=== PATIENT | female | born 1985 | race Caucasian/White ===

== ENCOUNTER → 2016-10-25 | Outpatient (CLI) | payer OTHER ==
[~2016-10-25] MED LIST: ACET-1256 PO; BCPILLS PO; BUTA1TAB70 PO; GABA-112 PO; GABA-113 PO; GABA1CAP PO; LEVE500T13 PO; LISI-725 PO; NRN/600 PO; SERT25TA PO; TRAM-10 PO
[2016-10-25 10:44] LABS: BASO % 0.2 %; BASO ABS # 0.03 K/uL (0-0.2); COMPLETE YES; EOS % 1.6 %; HEMATOCRIT 32.7 % (37-47); IG% 0.4 %; LYMPH % 21.4 %; LYMPH ABS # 3.09 K/uL (1.2-3.4); MEAN CELL VOLUME 86.1 fL (80-100); MEAN CORPUSCULAR HEMOGLOBIN 30.3 pg (25-34); MEAN CORPUSCULAR HGB CONC 35.2 g/dl (32-36); MEAN PLATELET VOLUME 9.5 fL (7.4-10.4); MONO % 4.8 %; NEUT % 71.6 %; PLATELET COUNT 285 K/uL (130-400); WHITE BLOOD COUNT 14.47 K/uL (4.8-10.8)
== END | disposition home or self-care (01) ==
LOC: C.LAB1850 10:08
PROVIDERS: ATTEND Obstetrics & Gynecology
DX: O36.80X0 Pregnancy with inconclusive fetal viability, not applicable or unspecified (principal)

== ENCOUNTER → 2016-10-31 | Outpatient (CLI) | payer OTHER ==
[~2016-10-31] MED LIST changes: -GABA1CAP PO; -NRN/600 PO
[2016-10-31 16:45] LABS: BENZODIAZEPINE, URINE NEG (NEG); COCAINE,URINE NEG (NEG); PHENCYCLIDINE, URINE NEG (NEG)
== END | disposition home or self-care (01) ==
LOC: C.LAB 12:38
PROVIDERS: ATTEND Family Medicine
DX: Z87.898 Personal history of other specified conditions (principal)

== ENCOUNTER 2016-11-02 14:05 | Emergency (ER) | payer OTHER ==
[~2016-11-02] VITALS: Ht 157.5 cm; Wt 58.0 kg
[~2016-11-02 14:05] MED LIST changes: -GABA-112 PO; -LEVE500T13 PO; -TRAM-10 PO
[2016-11-02 14:11] VITALS: TEMP 36.3; Ht 157.5 cm; Wt 58.0 kg
[2016-11-02] MEDS ORDERED: SODIUM CHLORIDE 0.9% 1000ML 500 ML IV STA (14:51)
[2016-11-02] MEDS ORDERED: ACETAMINOPHEN 500 MG TAB PO STA (14:51)
[2016-11-02] MEDS ORDERED: MoRPHine SULFATE 10 MG/ML CARP/VIAL IV PRN (15:00)
--- NOTE | 2016-11-02 15:00 | EMERGENCY ROOM VISIT NOTE ---
History Report prepared by Charles: Ivet Mccarty Under the Supervision of: Dr. Home Barlow M.D. First contact with patient: 14:48 Chief Complaint: VAGINAL BLEEDING Stated Complaint: HEAVY BLEED AND PAIN 3 MON History of Present Illness The patient is a 31 year old female who presents to the Emergency Room with complaints of persistent vaginal bleeding that started earlier today. She is accompanied by her fiance. The patient is approximately 11 weeks and notes she had a pelvic ultrasound performed yesterday. She notes this is the 4th time with this that she has experienced heavy vaginal bleeding. She also complains of crampy abdominal pain. She has tried taking Tylenol and Ibuprofen, but they have provided minimal relief. The patient has been 6 times before and has 3 children. Her other pregnancies ended in miscarriage and she follows with [facility]. . She notes that prior to arrival, she was using the bathroom when she experienced something heavy fall into the toilet. She is not sure if it was a clot. She felt nauseous last night, but has not vomited. She also denies any diarrhea. The patient admits to experiencing Suboxone withdrawal last year. She states she has not taken any similar medications since then and reports she takes Tylenol or Ibuprofen for pain now. Her blood type is A positive and she denies any recent fevers or cough or cold symptoms. Source of History: patient Onset: earlier today Position: other (vagina) Timing: other (persistent) Associated Symptoms: + abdominal pain, + nausea, No cough (cough or cold symptoms), No diarrhea, No fevers, No vomiting Review of Systems See HPI for pertinent positives & negatives. A total of 10 systems reviewed and were otherwise negative. Past Medical & Surgical Medical Problems: (1) ASTHMA, UNSPECIFIED (2) BIPOLAR DISORDER, UNSPECIFIED (3) Endometriosis (4) Hypothyroidism (5) Insomnia (6) MULTIPLE SCLEROSIS (7) POSTTRAUMATIC STRESS DISORDER (8) labor in third trimester Family History Diabetes mellitus FH: heart disease FHx: cancer Hypertension Kidney disease Psychiatric disorder Social History Smoking Status: Current Every Day Smoker Alcohol Use: occasionally Drug Use: marijuana Marital Status: in relationship Housing Status: lives with significant other Occupation Status: unemployed Current/Historical Medications Scheduled Gabapentin (Neurontin), 400 MG PO TID Lisinopril (Zestril), 20 MG PO DAILY Sertraline (Zoloft), 50 MG PO DAILY Scheduled PRN Acetaminophen (Tylenol), 1,000 MG PO Q6H PRN for Pain Cwiajfobfb-Wxeitsvrtlbeg-Zqknj (Esgic), 1 TAB PO DAILY PRN for Migraine Allergies Coded Allergies: Penicillins (Verified Allergy, Severe, Stopped breathing., 11/02/16) Reported by PT. Codeine (Unverified Allergy, Intermediate, ITCHING/BURNING, 11/02/16) pt would like this allergy removed, states reaction continued after not being on medication Tramadol (Verified Allergy, Mild, 11/02/16) Ketorolac Tromethamine (Verified Allergy, Unknown, GI SYMPTOMS, 11/02/16) Sumatriptan (Unverified Adverse Reaction, Intermediate, EXACERBATES HEADACHE, 11/02/16) Physical Exam Vital Signs Date Time Temp Pulse Resp B/P Pulse Ox O2 Delivery O2 Flow Rate FiO2 11/02/16 17:06 78 14 102/73 100 Room Air 11/02/16 14:11 36.3 101 18 126/73 100 Room Air Physical Exam GENERAL: Patient is in no acute distress. HEENT: No acute trauma, normocephalic atraumatic, mucous membranes moist, no nasal congestion, no scleral icterus. NECK: No stridor, no adenopathy, no meningismus, trachea is midline. LUNGS: Clear to auscultation bilaterally, no wheeze, no rhonchi, breath sounds equal. HEART: Without murmurs gallops or rubs, regular rate and rhythm. ABDOMEN: Soft, tender to the lower quadrants bilaterally, bowel sounds positive , no hernias, no peritonitis. EXTREMITIES: No cyanosis or edema, full range of motion of all the joints without pain or difficulty, no signs for acute trauma. NEUROLOGIC: Oriented x 3, no acute motor or sensory deficits, no focal weakness. SKIN: No rash, no jaundice, no diaphoresis. Medical Decision & Procedures ER Provider Diagnostic Interpretation: This Ultrasound was reviewed and interpreted by the radiologist and reviewed by myself. LIMITED (US) IMPRESSION: 1. Single live intrauterine gestation. The estimated postmenstrual age is 10 weeks and 6 days. 2. Normal maternal ovaries Electronically signed by: Edgar Saab M.D. 11/02/2016 5:21 PM Laboratory Results 11/02/16 15:06 11/02/16 15:06 Test 11/02/16 15:06 Red Blood Count 4.21 M/uL (4.2-5.4) Mean Corpuscular Volume 88.4 fL (80-100) Mean Corpuscular Hemoglobin 29.9 pg (25-34) Mean Corpuscular Hemoglobin Concent 33.9 g/dl (32-36) RDW Standard Deviation 47.5 fL (36.4-46.3) RDW Coefficient of Variation 14.6 % (11.5-14.5) Mean Platelet Volume 9.8 fL (7.4-10.4) Anion Gap 10.0 mmol/L (3-11) Est Creatinine Clear Calc Drug Dose 125.2 ml/min Estimated GFR () 148.6 Estimated GFR (Non- 128.2 BUN/Creatinine Ratio 14.8 (10-20) Calcium Level 9.5 mg/dl (8.5-10.1) Human Chorionic Gonadotropin, Quant 74279 mIU/mL Laboratory results reviewed by me. Medications Administered Medications (Trade) Dose Ordered Sig/Wesley Route Start Time Stop Time Status Last Admin Dose Admin Sodium Chloride (Nss 1000ml) 500 ml @ 999 mls/hr Q31M STAT IV 11/02/16 14:51 11/02/16 15:21 DC 11/02/16 15:17 999 MLS/HR Acetaminophen (Tylenol Tab) 1,000 mg NOW STAT PO 11/02/16 14:51 11/02/16 14:57 DC 11/02/16 15:17 1,000 MG Morphine Sulfate (MoRPHine SULFATE INJ) 4 mg STK-MED ONCE .ROUTE 11/02/16 15:09 11/02/16 15:10 DC 11/02/16 15:16 4 MG ED Course 1449: The patient was evaluated in room C3. A complete history and physical exam was performed. 1451: Acetaminophen 1000 mg PO, NSS 500 ml @ 999 mls/hr IV. 1500: Morphine Sulfate 4 mg IV. 1509: Morphine Sulfate 4 mg IV. 1736: I reevaluated the patient. She is feeling much better. I discussed her results and discharge instructions and she verbalized complete understanding and agreement. Medical Decision The differential diagnoses considered include: Miscarriage, vaginal bleeding in , UTI, anemia, ectopic , electrolyte imbalance. There is no leukocytosis or concerning anemia. No significant electrolyte abnormality or kidney failure. Beta Quant is elevated consistent with the . Pelvic ultrasound shows a healthy intrauterine at around 11 weeks. The heart rate was about 150. The patient received IV saline, IV morphine and oral Tylenol, she is comfortable. She is not toxic or febrile. She is being discharged with pelvic rest, she can follow with OB. She was reassured that, at this point, the is healthy. Certainly, she is at risk for miscarriage with the intermittent vaginal bleeding, she understands. Impression Primary Impression: Vaginal bleeding Additional Impression: Scribe Attestation The scribe's documentation has been prepared under my direction and personally reviewed by me in its entirety. I confirm that the note above accurately reflects all work, treatment, procedures, and medical decision making performed by me. Departure Information Dispostion Home / Self-Care [facility] Additional Instructions pelvic rest--no sex for now tylenol for pain heat to the abdomen may help follow closely with ob return for worsening symptoms Problem Qualifiers
[2016-11-02] MEDS ORDERED: MoRPHine SULFATE 4 MG/ML 1 ML CARP\\VIAL ONE (15:09)
[2016-11-02 15:22] LABS: HEMATOCRIT 37.2 % (37-47); MEAN CELL VOLUME 88.4 fL (80-100); MEAN CORPUSCULAR HEMOGLOBIN 29.9 pg (25-34); MEAN CORPUSCULAR HGB CONC 33.9 g/dl (32-36); MEAN PLATELET VOLUME 9.8 fL (7.4-10.4); PLATELET COUNT 313 K/uL (130-400); RED BLOOD COUNT 4.21 M/uL (4.2-5.4)
[2016-11-02 15:38] LABS: BUN/CREATININE RATIO 14.8 (10-20); CALCIUM 9.5 mg/dl (8.5-10.1); CREATININE 0.52 mg/dl (0.60-1.20); POTASSIUM 3.6 mmol/L (3.5-5.1)
--- NOTE | 2016-11-02 17:23 | DIAGNOSTIC IMAGING REPORT ---
LIMITED (US) CLINICAL HISTORY: . Vaginal bleeding. COMPARISON STUDY: ultrasound dated November 23, 2015 FINDINGS: There is an anterior scar present. The maternal right ovary measured 26 x 17 x 17 mm. The maternal left ovary measured 30 x 14 x 23 mm. Both ovaries were unremarkable in appearance. A single alive intrauterine gestation was visualized. The crown-rump length measured 40 mm corresponding assessment a postmenstrual age of 10 weeks and 6 days. The maternal cervix was closed. The amniotic heart rate was 156. Incidental note is made of a small 4 mm myometrial calcification. IMPRESSION: 1. Single live intrauterine gestation. The estimated postmenstrual age is 10 weeks and 6 days. 2. Normal maternal ovaries Electronically signed by: Edgar Saab M.D. 11/02/2016 5:21 PM Dictated Date/Time: 11/02/2016 5:15 PM
[2016-11-02 18:21] VITALS: BP 107/69; PULSE 86; O2SAT 99
== END 2016-11-02 18:23 | disposition home or self-care (01) ==
LOC: C.EDB 14:07 → C.EDC 18:23
DX: O20.9 Hemorrhage in early pregnancy, unspecified (principal); Z3A.11 11 weeks gestation of pregnancy; O99.511 Diseases of the respiratory system complicating pregnancy, first trimester; J45.909 Unspecified asthma, uncomplicated; O99.341 Other mental disorders complicating pregnancy, first trimester; F31.9 Bipolar disorder, unspecified; Z86.39 Personal history of other endocrine, nutritional and metabolic disease; O99.351 Diseases of the nervous system complicating pregnancy, first trimester; G35 Multiple sclerosis; O99.333 Smoking (tobacco) complicating pregnancy, third trimester; F17.200 Nicotine dependence, unspecified, uncomplicated; Z83.3 Family history of diabetes mellitus; Z84.1 Family history of disorders of kidney and ureter; Z82.49 Family history of ischemic heart disease and other diseases of the circulatory system

== ENCOUNTER 2017-05-25 07:07 | Emergency (ER) | payer OTHER ==
[~2017-05-25] VITALS: Ht 157.5 cm; Wt 66.1 kg
[~2017-05-25 07:07] MED LIST changes: -BCPILLS PO
[2017-05-25] MEDS ORDERED: CYCLOBENZAPRINE HCL 10 MG TAB PO STA (07:18)
[2017-05-25 07:19] VITALS: TEMP 36.7; Ht 157.5 cm; Wt 66.1 kg
[2017-05-25] MEDS ORDERED: DEXAMETHASONE SOD INJ 10 MG/ML VIAL IM ONE (07:30)
[2017-05-25] MEDS ORDERED: GABA-113 PO (07:42)
[2017-05-25] MEDS ORDERED: GABA-112 PO (07:42)
[2017-05-25] MEDS ORDERED: LEVE500T13 PO (07:43)
--- NOTE | 2017-05-25 08:19 | DIAGNOSTIC IMAGING REPORT ---
LUMBAR SPINE 5 VIEWS HISTORY: low back pain/ fall COMPARISON: Lumbar spine 06/03/2016. FINDINGS: There is no fracture. No subluxation. Disc spaces are preserved. IMPRESSION: No fracture or subluxation within the lumbar spine. Electronically signed by: Edison Alaniz M.D. 05/25/2017 8:18 AM Dictated Date/Time: 05/25/2017 8:17 AM
[2017-05-25 08:21] LABS: BENZODIAZEPINE, URINE NEG (NEG); COCAINE,URINE NEG (NEG); PHENCYCLIDINE, URINE NEG (NEG)
[2017-05-25] MEDS ORDERED: TRAMADOL HCL 50 MG TAB PO STA (08:26)
[2017-05-25] MEDS ORDERED: TRAM-10 PO (08:59)
--- NOTE | 2017-05-25 09:00 | EMERGENCY ROOM VISIT NOTE ---
History First contact with patient: 07:10 Chief Complaint: FALL Stated Complaint: 12 History of Present Illness The patient is a 31 year old female who presents to the Emergency Room via EMS with complaints of low back pain. The patient has chronic low back pain but this morning she went to sit on the edge of the bathtub and twisted her back as she misjudged the distance to the edge of the tub. She states she fell but did not land on her back. He was the patient states that she is currently on a prednisone taper for her chronic back pain as well as Mobic. The patient states that the pain is across her lower back on onto her buttocks and then comes down the sides of both her thighs and wraps around to her knee. She denies any numbness and tingling in her toes. The patient denies any loss of bowel or bladder control. The patient denies any saddle anesthesia. She denies any urinary symptoms. By the EMS report states that she is a former heroin user. Review of Systems 6 system review was performed and was negative unless stated otherwise in history of present illness. Past Medical/Surgical History Medical Problems: (1) ASTHMA, UNSPECIFIED (2) BIPOLAR DISORDER, UNSPECIFIED (3) Endometriosis (4) Hypothyroidism (5) Insomnia (6) MULTIPLE SCLEROSIS (7) POSTTRAUMATIC STRESS DISORDER (8) labor in third trimester Family History Diabetes mellitus FH: heart disease FHx: cancer Hypertension Kidney disease Psychiatric disorder Social History Smoking Status: Current Every Day Smoker Alcohol Use: occasionally Drug Use: marijuana Marital Status: in relationship Housing Status: lives with significant other Occupation Status: unemployed Current/Historical Medications Scheduled Gabapentin (Neurontin), 100 MG PO TID Gabapentin (Neurontin), 600 MG PO TID Levetiracetam (Keppra), 500 MG PO BID Sertraline (Zoloft), 100 MG PO DAILY Scheduled PRN Acetaminophen (Tylenol), 1,000 MG PO Q6H PRN for Pain Bpttyeitze-Ogfauqpfbuzeg-Kncfh (Esgic), 1 TAB PO DAILY PRN for Migraine Physical Exam Vital Signs Date Time Temp Pulse Resp B/P (MAP) Pulse Ox O2 Delivery O2 Flow Rate FiO2 05/25/17 07:19 36.7 101 18 136/97 100 Room Air Physical Exam PHYSICAL EXAM: Vital Signs normal: Reviewed Nurse's notes and agree. Gen.: 31- year-old white female appears in no acute distress. MENTAL STATUS: Alert and oriented 3. LUNGS: Clear to auscultation without wheezes rales or rhonchi. CARDIAC: Regular rate and rhythm without murmur. LUMBAR SPINE: No gross bony abnormality noted. Patient is nontender to palpation over the spinous processes. She is tender to palpation over the paravertebral regions bilaterally. She has limited range of motion in all directions secondary to pain. Muscle strength is 5 out of 5 bilateral lower extremities and symmetrical. NEURO: Patient is able to heel and toe walk without difficulty. I lateral patellar and Achilles reflexes are 2+. Sensation is intact to pinprick bilateral lower extremities. Negative straight leg raise bilaterally. Medical Decision & Procedures ER Provider Diagnostic Interpretation: LUMBAR SPINE 5 VIEWS HISTORY: low back pain/ fall COMPARISON: Lumbar spine 06/03/2016. FINDINGS: There is no fracture. No subluxation. Disc spaces are preserved. IMPRESSION: No fracture or subluxation within the lumbar spine. Electronically signed by: Edison Alaniz M.D. 05/25/2017 8:18 AM Dictated Date/Time: 05/25/2017 8:17 AM Laboratory Results Test 05/25/17 07:50 Urine Opiates Screen NEG (NEG) Urine Methadone, Qualitative NEG (NEG) Urine Barbiturates NEG (NEG) Urine Phencyclidine (PCP) Level NEG (NEG) Ur Amphetamine/Methamphetamine NEG (NEG) MDMA (Ecstasy) Screen NEG (NEG) Urine Benzodiazepines Screen NEG (NEG) Urine Cocaine Metabolite NEG (NEG) Urine Marijuana (THC) POS (NEG) Medications Administered Medications (Trade) Dose Ordered Sig/Wesley Route Start Time Stop Time Status Last Admin Dose Admin Dexamethasone Sodium Phosphate (Decadron Inj) 10 mg NOW ONCE IM 05/25/17 07:30 05/25/17 07:31 DC 05/25/17 07:42 10 MG Cyclobenzaprine HCl (Flexeril Tab) 10 mg NOW STAT PO 05/25/17 07:18 05/25/17 07:22 DC 05/25/17 07:42 10 MG Tramadol HCl (Ultram Tab) 100 mg NOW STAT PO 05/25/17 08:26 05/25/17 08:27 DC 05/25/17 08:33 100 MG ED Course The patient was evaluated. The patient's EMR medication list were reviewed. The patient was instructed by the nursing staff to give a urine sample and when they went in to get the urine the cup was filled with water. Since the patient is a former heroin user my suspicions are for drug use in this patient and do not want to give her narcotics if she is currently using illicit drugs. Therefore I instructed the nurses to straight cath the patient for a urine tox screen. In the interim the patient was given Decadron 10 mg IM and Flexeril 10 mg by mouth. X-ray of the lumbar spine was ordered and interpreted by the radiologist and myself as above without any acute findings. I informed the patient of the findings. She did tell the nurse as well as myself that she uses THC intermittently for her MS stated this most likely will show up on the urine tox screen. Urine tox screen revealed THC but otherwise was negative. Therefore the patient was given Ultram which she stated she is not allergic to 100 mg by mouth while in the emergency room.. The patient was reevaluated and was feeling much better. The patient was discharged home in stable condition. Medical Decision Even though the patient has chronic back pain due to the fall and x-ray of the lumbar spine was ordered to evaluate for fracture. [facility] Drug Monitoring Program Search Results: patient reviewed within database Medication Reconcilliation Current Medication List: was personally reviewed by me Impression Primary Impression: Low back pain Departure Information Dispostion Home / Self-Care Condition GOOD Prescriptions Tramadol (Ultram) 50 Mg Tab 1-2 TAB PO Q6H Y for Pain, #20 TAB For Initial Treatment Prov: Era Lovett PA-C 05/25/17 Referrals No Doctor, Assigned (PCP) Forms HOME CARE DOCUMENTATION FORM, IMPORTANT VISIT INFORMATION Patient Instructions My [facility] Additional Instructions Take tramadol as needed for pain. Do not drive while taking the tramadol. Continue your prednisone and Modic in addition to the tramadol. Follow-up with your family doctor next week. If symptoms worsen in the interim, return to ER. Problem Qualifiers Primary Impression: Low back pain Chronicity: acute Back pain laterality: bilateral Sciatica presence: with sciatica Sciatica laterality: bilateral sciatica Qualified Codes: M54.42 - Lumbago with sciatica, left side; M54.41 - Lumbago with sciatica, right side
[2017-05-25 09:11] VITALS: BP 142/90; PULSE 95; O2SAT 100
== END 2017-05-25 09:33 | disposition home or self-care (01) ==
LOC: EDBD 07:07 → C.EDB 07:08
DX: M54.42 Lumbago with sciatica, left side (principal); W19.XXXA Unspecified fall, initial encounter; J45.909 Unspecified asthma, uncomplicated; F31.9 Bipolar disorder, unspecified; E03.9 Hypothyroidism, unspecified; G35 Multiple sclerosis; N80.9 Endometriosis, unspecified; F43.10 Post-traumatic stress disorder, unspecified; Z83.3 Family history of diabetes mellitus; Z82.49 Family history of ischemic heart disease and other diseases of the circulatory system; F17.200 Nicotine dependence, unspecified, uncomplicated; F12.90 Cannabis use, unspecified, uncomplicated

== ENCOUNTER → 2017-06-19 | Outpatient (CLI) | payer OTHER ==
[~2017-06-19] MED LIST changes: +GABA-112 PO; +GABA1CAP PO; +GADAVIST IV PRN; +LEVE500T13 PO; -LISI-725 PO; +NRN/600 PO; +TRAM-10 PO
--- NOTE | 2017-06-19 20:28 | DIAGNOSTIC IMAGING REPORT ---
LUMBAR SPINE COMBINATION CLINICAL HISTORY: 31 years-old Female with G35 Multiple [id number] Low back painM54.16 Lumbar radiculopathy. Patient complains of severe low back pain with radiation into the lower hips and thighs, right greater than left, acute. COMPARISON: Lumbar spine radiographs 05/25/2017, lumbar spine MR 06/27/2014 TECHNIQUE: Multiplanar, multi sequence MRI of the lumbar spine was performed both with and without the use of 6.5 mL Gadavist FINDINGS: The large [id number] french folder images demonstrate no gross abnormality. Signal within the imaged distal cord is within normal limits without abnormal T2 signal. There is no abnormal enhancement identified. Conus medullaris terminates at the T12 level. There is no focal bone marrow edema, fracture or malalignment. No marrow replacing process. Some of the axial images are mildly motion degraded. T12-L1: No central canal or neural foraminal stenosis. L1-L2: No central canal or neural foraminal stenosis. L2-L3: No central canal or neural foraminal stenosis. L3-L4: No central canal or neural foraminal stenosis. Mild facet arthrosis. L4-L5: Small circumferential disc bulge without central canal or neural foraminal stenosis. Mild facet arthrosis. L5-S1: Mild posterior intervertebral disc space narrowing is noted with small circumferential annular disc bulge. Additionally, there is mild facet arthrosis without central canal or foraminal narrowing. No significant change from comparison. IMPRESSION: 1. Minimal discogenic degenerative changes at L4-L5 and L5-S1 without significant central canal or foraminal narrowing. No significant change from comparison study 06/27/2014. 2. Mild multilevel facet arthropathy. 3. No abnormal signal or enhancement within the imaged distal cord to suggest demyelinating disease. The above report was generated using voice recognition software. It may contain grammatical, syntax or spelling errors. Electronically signed by: Rodrigo Finch M.D. 06/19/2017 8:27 PM Dictated Date/Time: 06/19/2017 8:18 PM
== END | disposition home or self-care (01) ==
LOC: C.MRI 18:57
PROVIDERS: ATTEND Family Medicine
DX: G35 Multiple sclerosis (principal); M54.16 Radiculopathy, lumbar region

== ENCOUNTER 2017-07-23 21:16 | Emergency (ER) | payer OTHER ==
[~2017-07-23] VITALS: Ht 157.5 cm; Wt 66.0 kg
[~2017-07-23 21:16] MED LIST changes: -GABA1CAP PO; -GADAVIST IV PRN; -NRN/600 PO
[2017-07-23 21:23] VITALS: TEMP 37; Ht 157.5 cm; Wt 66.0 kg
[2017-07-23] MEDS ORDERED: ACETAMINOPHEN/CODEINE 300/30MG TAB PO STA (22:23)
[2017-07-23] MEDS ORDERED: GABAPENTIN 800 MG TAB PO STA (22:26)
[2017-07-23] MEDS ORDERED: NRN/600 PO (22:29)
[2017-07-23] MEDS ORDERED: GABA1CAP PO (22:29)
--- NOTE | 2017-07-23 22:33 | EMERGENCY ROOM VISIT NOTE ---
ED Visit Note First contact with patient: 22:09 CHIEF COMPLAINT: Low back pain HISTORY OF PRESENT ILLNESS: This 31-year-old female patient presents to the emergency department ambulatory, complaining of pain in the low back which began several weeks ago. The patient does report a history of chronic low back pain, and she is currently seeing her primary care provider for prescriptions for tramadol. She states a few days ago, the pain seemed to be worsening to the point where the tramadol was not helping any longer. Upon questioning regarding the patient's medication list, she states she did run out of her gabapentin a few days ago as well. She did not put together that being off of the gabapentin could potentially be causing her flare up of pain. She is under the care of her PCP and has had multiple MRIs of her back performed over the past 1-2 years. She does have an appointment scheduled for July 30 with pain management. She states today, she had taken 3 tramadol and some Tylenol without any help. She has also been taking hot baths and stretching without any improvement in her symptoms. She was told that her primary care provider will not prescribe her any more medications or narcotics for her chronic pain until she is seen by pain management. She states she was taking Tylenol #3 a few weeks ago, which did help her pain. The patient does not have a specific diagnosis, and states she has "SI joint problems". The patient notes the pain as sharp and constant and a 9/10. The patient denies any loss of control of their bowel or bladder functions. There has been no leg numbness or weakness, and no change in sensation. No nausea or vomiting or abdominal pain. No chest pain or shortness of breath. The patient has not had prior specific back injuries. No dysuria or increased urinary frequency. REVIEW OF SYSTEMS: A 10 system review of systems was performed with positives and pertinent negatives listed in the history of present illness. All other systems were reviewed and are negative. ALLERGIES: Imitrex, penicillins, Toradol MEDICATIONS: Tramadol, Zoloft, gabapentin, Keppra, B12, Synthroid, ranitidine, prednisone PMH: Multiple sclerosis, SI joint problems, bipolar disorder, insomnia SOCIAL HISTORY: The patient lives locally with her boyfriend. She states she does currently smoke approximately one pack of cigarettes per day. She denies alcohol or drug use. PHYSICAL EXAM: VITALS: Vitals are noted on the nurse's note and reviewed by myself. Vital signs stable. GENERAL: This is a 31-year-old white female, in no acute distress, nondiaphoretic, well-developed well-nourished. SKIN: The skin was without rashes, erythema, edema, or bruising. Capillary refill less than 2 seconds. NECK: Supple without nuchal rigidity. No cervical spine tenderness. No paraspinous muscle tenderness. HEART: Regular rate and rhythm without murmurs gallops or rubs. LUNGS: Clear to auscultation bilaterally without wheezes, rales or rhonchi. ABDOMEN: Positive bowel sounds x 4. Normal tympanic percussion. Soft, nontender, without masses or organomegaly. Lewis sign negative. MUSCULOSKELETAL: No muscle atrophy, erythema, or edema noted of the back. There is mild tenderness over the lumbar spinous processes. There is mild tenderness over the paraspinous muscles bilaterally. There is no tenderness over the thoracic spine or paraspinous muscles. There are no muscle spasms present. The patient is slow to move around with maximum tenderness with sitting from a lying position. Negative straight leg raise test. NEURO: Patient was alert and oriented to person place and time. Normal sensation to light and sharp touch. Deep tendon reflexes 2+ in the lower extremities. Dorsalis pedis pulse 2+ bilaterally. Strength 5/5 and equal in the bilateral lower extremities. EMERGENCY DEPARTMENT COURSE: The patient was seen and evaluated as above. I did discuss with her proper management for chronic back pain, and advised her that we do not manage chronic pain here in the emergency department. I encouraged the patient to take her tramadol as prescribed, as she is allowed to take 1-2 tablets every 4-6 hours. She has only taken 3 tablets total today as well as the Tylenol. I offered to refill the patient's gabapentin, as I suspect that the flare up of her pain is partially caused by being off of gabapentin at this time. The patient did request something for pain here in the emergency department, so I offered her Tylenol with codeine. She did accept this. I did review the patient in PDMP, and did note that she had had multiple prescriptions for tramadol over the past few weeks, but did not note any prescriptions for Tylenol #3. To my knowledge at this point, the patient seemed to be in agreement with the plan of care, and will follow-up with her PCP and pain management at her regularly scheduled appointment next week. I was advised by the RN Can Labeler that while in triage, the patient had been very calm and discussing her complaints, however the patient's boyfriend became borderline aggressive with nursing staff when they advised him that we often do not treat chronic pain with narcotic medication here in the emergency department. I was informed that the patient had been calm and was attempting to calm down her boyfriend throughout the interaction. Apparently after I left the room, registration entered the room to talk with the patient. I was informed that the patient told registration that she was unhappy with her care and my plan at this time, and would like to see another provider. I discussed the case with Dr. Austin and advised her of my plan of care to manage the patient's pain at this time. Dr. Austin is in agreement, and does agree to go see the patient for further evaluation and discussion regarding proper treatment. Dr. Austin and Esther, RN, did go speak with the patient at this point. The patient was given 800 mg gabapentin and a dose of Tylenol with codeine while here in the emergency department. She was encouraged to talk with her primary care provider regarding a longer prescription for the tramadol because she may run out sooner than her pain management appointment. Discharge instructions were reviewed, and the patient was discharged home in good condition. I attest that I have personally reviewed the patient's current medication list. Patient was found to have normal blood pressure on screening and does not require follow-up. DIFFERENTIAL DIAGNOSIS: Lumbar strain, lumbar sprain, fracture, sciatica, disc herniation, cauda equina syndrome, chronic pain, MS flare, fibromyalgia, malignancy, and others DIAGNOSIS: Chronic back pain Problem List Medical Problems: (1) ASTHMA, UNSPECIFIED Status: Chronic (2) BIPOLAR DISORDER, UNSPECIFIED Status: Chronic (3) Endometriosis Status: Chronic (4) Hypothyroidism Status: Chronic (5) Insomnia Status: Chronic (6) MULTIPLE SCLEROSIS Status: Chronic (7) POSTTRAUMATIC STRESS DISORDER Status: Chronic Current/Historical Medications Scheduled Gabapentin (Neurontin), 100 MG PO TID Gabapentin (Neurontin), 600 MG PO TID Gabapentin (Neurontin), 1 CAP PO TID Gabapentin (Neurontin), 1 TAB PO TID Levetiracetam (Keppra), 500 MG PO BID Sertraline (Zoloft), 100 MG PO DAILY Scheduled PRN Acetaminophen (Tylenol), 1,000 MG PO Q6H PRN for Pain Orqhwbytiy-Nxqpslmdcdcjf-Ymoff (Esgic), 1 TAB PO DAILY PRN for Migraine Tramadol (Ultram), 1-2 TAB PO Q6H PRN for Pain Allergies Coded Allergies: Penicillins (Verified Allergy, Severe, Stopped breathing., 05/25/17) Reported by PT. Codeine (Unverified Allergy, Intermediate, ITCHING/BURNING, 11/02/16) pt would like this allergy removed, states reaction continued after not being on medication Tramadol (Verified Allergy, Mild, 11/02/16) Ketorolac Tromethamine (Verified Allergy, Unknown, GI SYMPTOMS, 05/25/17) Sumatriptan (Unverified Adverse Reaction, Intermediate, EXACERBATES HEADACHE, 05/25/17) Vital Signs Date Time Temp Pulse Resp B/P (MAP) Pulse Ox O2 Delivery O2 Flow Rate FiO2 07/23/17 22:50 79 18 127/78 97 Room Air 07/23/17 21:23 37.0 107 16 118/76 98 Room Air Medications Administered Medications (Trade) Dose Ordered Sig/Wesley Route Start Time Stop Time Status Last Admin Dose Admin Acetaminophen/ Codeine Phosphate (Tylenol w/ Codeine #3 Tab) 1 tab NOW STAT PO 07/23/17 22:23 07/23/17 22:26 DC 07/23/17 22:37 1 TAB Gabapentin (Neurontin Tab) 800 mg NOW STAT PO 07/23/17 22:26 07/23/17 22:27 DC 07/23/17 22:47 800 MG Departure Information Impression Primary Impression: Chronic low back pain Dispostion Home / Self-Care Condition GOOD Prescriptions Gabapentin (NEURONTIN) 600 Mg Tab 1 TAB PO TID for 30 Days, #90 TAB Prov: Sadaf Sheikh PA-C 07/23/17 Gabapentin (NEURONTIN) 100 Mg Cap 1 CAP PO TID for 30 Days, #90 CAP Prov: Sadaf Sheikh PA-C 07/23/17 Referrals Malathi Ortiz DO (PCP) Patient Instructions ED Back Care Tips, ED Neck Back Pain General, [facility] Additional Instructions You have been treated in the Emergency Department for Back Pain. You have received pain medicine in the emergency department which impairs your ability to operate a vehicle. It is illegal for you to drive after receiving these medicines. I did refill your gabapentin prescription. Please restart taking this medication as prescribed. He should be sure to follow up to psychiatrist for refills at that time. For pain control, you can use the following ybsg-kea-tdtipgs medicines (if >12 yo): Ibuprofen(Motrin, Advil) may be used for fever or pain. Use 600mg every six hours as needed. Take with food. Avoid using more than 2400mg in a 24 hour period. Do not use 2400mg per day for more than three consecutive days without physician direction. Prolonged inappropriate use can lead to stomach upset or ulcers. (AND/OR) Acetaminophen(Tylenol) may be used for fever or pain. Use 1000mg every six hours as needed. Avoid using more than 3000mg in a 24 hour period. If this is an acute injury, ice can be applied to the area of pain for the first 3 days to help decrease pain and inflammation. After the first 3 days, a heating pad can be used over the area for continued soothing relief. You should schedule a follow-up appointment in 2-3 days with your Primary Care Provider for further evaluation and treatment of your back pain. Return to the Emergency Department if your current symptoms worsen despite treatment course outlined above, or if you develop any of the following symptoms : intractable pain despite aforementioned treatment course, loss of control of your bowel or bladder, numbness or tingling in your groin, or development of a fever. Problem Qualifiers Primary Impression: Chronic low back pain Back pain laterality: bilateral Sciatica presence: without sciatica Qualified Codes: M54.5 - Low back pain; G89.29 - Other chronic pain
[2017-07-23 22:50] VITALS: BP 127/78; PULSE 79; O2SAT 97
== END 2017-07-23 22:55 | disposition home or self-care (01) ==
LOC: C.EDB 21:17 → C.EDD 22:55
DX: M54.5 Low back pain (principal); G89.29 Other chronic pain; G35 Multiple sclerosis; F31.9 Bipolar disorder, unspecified; F43.10 Post-traumatic stress disorder, unspecified; E03.9 Hypothyroidism, unspecified; J45.909 Unspecified asthma, uncomplicated; G47.00 Insomnia, unspecified; Z79.899 Other long term (current) drug therapy; Z79.52 Long term (current) use of systemic steroids; F17.210 Nicotine dependence, cigarettes, uncomplicated

== ENCOUNTER 2017-11-16 20:37 | Emergency (ER) | payer OTHER ==
[2017-11-16 20:43] VITALS: BP 126/80; TEMP 36.3; Ht 157.5 cm
[2017-11-16] MEDS ORDERED: SERT50TA PO (21:11)
--- NOTE | 2017-11-16 22:28 | DIAGNOSTIC IMAGING REPORT ---
LEFT WRIST 4 VIEWS HISTORY: Left wrist pain COMPARISON: None. FINDINGS: There is no fracture or dislocation. Soft tissues are unremarkable. No radiopaque foreign bodies. IMPRESSION: No fractures. Electronically signed by: Edison Alaniz M.D. 11/16/2017 10:27 PM Dictated Date/Time: 11/16/2017 10:26 PM
--- NOTE | 2017-11-16 22:33 | DIAGNOSTIC IMAGING REPORT ---
LUMBAR SPINE 5 VIEWS HISTORY: Low back pain COMPARISON: Lumbar spine 05/25/2017. FINDINGS: There is no fracture. No subluxation. Disc spaces are preserved. IMPRESSION: No fracture or subluxation within the lumbar spine. Electronically signed by: Edison Alaniz M.D. 11/16/2017 10:32 PM Dictated Date/Time: 11/16/2017 10:30 PM
[2017-11-16] MEDS ORDERED: METH4PAK PO (22:53)
[2017-11-16 23:23] VITALS: PULSE 94; O2SAT 96
--- NOTE | 2017-11-18 01:10 | EMERGENCY ROOM VISIT NOTE ---
History First contact with patient: 20:59 Chief Complaint: BACK PAIN Stated Complaint: SEVERE BACK PAIN HAS BEEN ON GOING History of Present Illness The patient is a 32 year old female who presents to the Emergency Room with complaints of severe back pain for the past week. The patient states that she was moving furniture at home last weekend when she pulled something in her back. The patient has a long-standing history of chronic back pain. She has been seen several times in the past at this facility with his complaint. The patient has previously been referred to pain management and orthospine, but does not follow with either of these services. She does not report a distinct fall or trauma. No difficulty using the bathroom. No saddle paresthesias. The patient's discomfort is bilateral in the lower back and does not radiate. She rates the pain a 10/10 and does not identify aggravating or alleviating factors. She did take some tramadol initially, but has run out of this medication. Review of Systems More than 10 systems were reviewed and otherwise negative with the exception of history of present illness. Past Medical/Surgical History Medical Problems: (1) ASTHMA, UNSPECIFIED (2) BIPOLAR DISORDER, UNSPECIFIED (3) Endometriosis (4) Hypothyroidism (5) Insomnia (6) MULTIPLE SCLEROSIS (7) POSTTRAUMATIC STRESS DISORDER (8) labor in third trimester Family History Diabetes mellitus FH: heart disease FHx: cancer Hypertension Kidney disease Psychiatric disorder Social History Smoking Status: Current Every Day Smoker Alcohol Use: occasionally Drug Use: marijuana Marital Status: in relationship Housing Status: lives with significant other Occupation Status: unemployed Current/Historical Medications Scheduled Gabapentin (Neurontin), 100 MG PO TID Gabapentin (Neurontin), 600 MG PO TID Levetiracetam (Keppra), 500 MG PO BID Methylprednisolone (Medrol Dosepak), 1 PKT PO DAILY Sertraline (Zoloft), 50 MG PO DAILY Scheduled PRN Acetaminophen (Tylenol), 1,000 MG PO Q6H PRN for Pain Physical Exam Vital Signs Date Time Temp Pulse Resp B/P (MAP) Pulse Ox O2 Delivery O2 Flow Rate FiO2 11/16/17 23:23 94 96 11/16/17 20:43 36.3 105 18 126/80 96 Room Air Physical Exam VITALS: Vitals are noted on the nurse's note and reviewed by myself. Vital signs stable. GENERAL: Well-developed, well-nourished, white female who appears very sedated on examination. HEAD: Normocephalic atraumatic. NECK: Supple without nuchal rigidity. No lymphadenopathy. No thyromegaly. Cervical spine is nontender. HEART: Regular rate and rhythm without murmurs gallops or rubs. LUNGS: Clear to auscultation bilaterally without wheezes, rales or rhonchi. No retractions or accessory muscle use. MUSCULOSKELETAL: No muscle atrophy, erythema, or edema noted. Full range of motion without joint tenderness in all extremities. No tenderness to palpation. Negative straight leg raise bilateral. No saddle paresthesias. Normal gait. Strength 5/5 throughout. NEURO: Patient was alert and oriented to person place and time. CN II through XII grossly intact. No focal neurological deficits. Medical Decision & Procedures ER Provider Diagnostic Interpretation: LUMBAR SPINE 5 VIEWS HISTORY: Low back pain COMPARISON: Lumbar spine 05/25/2017. FINDINGS: There is no fracture. No subluxation. Disc spaces are preserved. IMPRESSION: No fracture or subluxation within the lumbar spine. LEFT WRIST 4 VIEWS HISTORY: Left wrist pain COMPARISON: None. FINDINGS: There is no fracture or dislocation. Soft tissues are unremarkable. No radiopaque foreign bodies. IMPRESSION: No fractures. ED Course Physical exam and history were performed. Nursing notes, EMR, and Medication List were personally reviewed. Patient appears to have reports of severe back pain. On examination the patient is very sedated appearing. She is answering questions appropriately, but slowly. She denies taking any medication other than tramadol a few days ago. I discussed options of care with the patient, and explained that I would not be providing her pain medication today. She would like x-rays of her back, which were performed. The patient also called me back into the emergency room after I had performed my initial evaluation, and requested an x-ray of her wrist. She states that her left wrist has been bothering her for several weeks , but despite this she still participated in moving furniture this past weekend. X-ray of the wrist was performed. The patient's x-rays are as above and reviewed by myself and radiology. X-rays do not show evidence of acute fracture or dislocation. On reevaluation the patient was asleep in the emergency department bed. I was able to wake her to provide results. She states that she had not been sleeping well the past few nights, which was why she was so tired here in the department. Overall the patient appears stable for discharge home. I will treat the patient conservatively with qccp-qoj-plifqbs analgesics. She really needs to follow with orthospine or the pain management clinic. She was otherwise invited back to the ER with any new, worsening, or concerning symptoms. The patient's encounter today was quite peculiar. I do have concern for drug- seeking behavior. Review of the [place] drug monitoring website appears showing the patient filling over 160 oxycodone 10 mg tablets 2 months ago. This was done over 4 different prescriptions. Last month she did not receive any medication, and this month is now here in this department. I suspect that she was dismissed from her usual providers as she had been receiving regular prescriptions until last month. Her case will need to be followed in the future. The chart was completed utilizing [employer] Speech Voice Recognition Software. Grammatical errors, random word insertions, pronoun errors, and incomplete sentences are an occasional consequence of this system due to software limitations, ambient noise, and hardware issues. Any formal questions or concerns about the content, text, or information contained within the body of this dictation should be directly addressed to the provider for clarification. . Medical Decision Differential diagnosis: Etiologies such as musculoskeletal, disc herniation, fracture, aortic disease, metastatic disease, cord compression, discitis, infection, renal colic, gastrointestinal, acute exacerbation of chronic back pain, sciatica, cauda equina, as well as others were entertained. Impression Primary Impression: Back pain Additional Impression: Wrist pain Departure Information Dispostion Home / Self-Care Condition GOOD Prescriptions Methylprednisolone (MEDROL DOSEPAK) 4 Mg Josue 1 PKT PO DAILY, #1 PKT Prov: Golden Soto PA-C 11/16/17 Forms HOME CARE DOCUMENTATION FORM, IMPORTANT VISIT INFORMATION Patient Instructions My [facility] Additional Instructions You were seen and evaluated today on an emergency basis only. This is not a substitute for, or an effort to provide, complete comprehensive medical care. It is not possible to recognize and treat all injuries or illnesses in a single emergency department visit. For this reason it is recommended that you followup with your primary care physician this week for ongoing care and evaluation. Take a Medrol Dosepak as prescribed on the packaging The emergency department is not able to provide pain medication for chronic back pain. We recommend that you follow with a pain management clinic for appropriate services. You are welcome to return to the emergency department anytime with new, worsening, or concerning symptoms. Problem Qualifiers
== END 2017-11-16 23:23 | disposition home or self-care (01) ==
LOC: C.EDB 20:38 → C.EDD 23:23
DX: M54.5 Low back pain (principal); M25.532 Pain in left wrist; G89.29 Other chronic pain; G35 Multiple sclerosis; E03.9 Hypothyroidism, unspecified; F31.9 Bipolar disorder, unspecified; Z79.899 Other long term (current) drug therapy; Z81.8 Family history of other mental and behavioral disorders; Z82.49 Family history of ischemic heart disease and other diseases of the circulatory system; Z83.3 Family history of diabetes mellitus; Z84.1 Family history of disorders of kidney and ureter; F17.200 Nicotine dependence, unspecified, uncomplicated

== ENCOUNTER 2017-11-23 22:48 | Emergency (ER) | payer OTHER ==
[~2017-11-23] VITALS: Ht 157.5 cm; Wt 74.2 kg
[~2017-11-23 22:48] MED LIST changes: -BUTA1TAB70 PO; +METH4PAK PO; -SERT25TA PO; +SERT50TA PO; -TRAM-10 PO
[2017-11-23 22:58] VITALS: TEMP 36.9; Ht 157.5 cm; Wt 74.2 kg
[2017-11-24 00:21] VITALS: O2SAT 97
[2017-11-24 00:30] LABS: BASO % 0.5 %; BASO ABS # 0.04 K/uL (0-0.2); EOS % 9.5 %; EOS ABS # 0.78 K/uL (0-0.5); HEMATOCRIT 43.7 % (37-47); HEMOGLOBIN 14.5 g/dL (12.0-16.0); IG# 0.02 K/uL (0.00-0.02); LYMPH % 40.8 %; LYMPH ABS # 3.37 K/uL (1.2-3.4); MEAN CELL VOLUME 88.8 fL (80-100); MEAN CORPUSCULAR HEMOGLOBIN 29.5 pg (25-34); MEAN CORPUSCULAR HGB CONC 33.2 g/dl (32-36); MEAN PLATELET VOLUME 10.4 fL (7.4-10.4); MONO % 3.9 %; MONO ABS # 0.32 K/uL (0.11-0.59); NEUT % 45.1 %; NEUT ABS # 3.72 K/uL (1.4-6.5); PLATELET COUNT 368 K/uL (130-400); RED CELL DISTRIBUTION WIDTH CV 14.8 % (11.5-14.5); RED CELL DISTRIBUTION WIDTH SD 48.3 fL (36.4-46.3); WHITE BLOOD COUNT 8.25 K/uL (4.8-10.8)
[2017-11-24 00:58] LABS: ALBUMIN 3.9 gm/dl (3.4-5.0); CALCIUM 9.1 mg/dl (8.5-10.1); CREATININE 0.63 mg/dl (0.60-1.20); TOTAL PROTEIN 8.4 gm/dl (6.4-8.2)
--- NOTE | 2017-11-24 04:05 | EMERGENCY ROOM VISIT NOTE ---
History First contact with patient: 23:21 Chief Complaint: FALL Stated Complaint: FALL, BACK & ELBOW PAIN History of Present Illness The patient is a 32 year old female who presents to the Emergency Room with complaints of low back pain and right elbow pain. The patient states she fell off of a ladder, from the third rung earlier this evening. She believes the incident occurred at approximately 5 PM. She states as she was falling, she did hit her head on a higher rung, and landed backwards on her behind. The patient states she has a chronic history of low back pain, and states she believes she flared up the pain when she fell. She describes the pain is similar to her usual pain, however more severe. She states the pain is dull, and located in the middle of the low back. She states after landing on her buttocks, that she also hit her right elbow. She admits to taking 800 mg ibuprofen and 3 OTC Tylenol tablets prior to arrival, and states none of them have helped her pain. On arrival to the emergency department, the patient is not arousable on initial examination and for several hours. She was difficult to obtain a history, and he is very tired, as she has not been sleeping well past few days. The patient eventually does admit to drinking "a couple drinks" this evening, but she first stated that she drank these drinks a few days ago. The patient denies any drug use. She denies any chest pain, difficulty breathing, visual disturbances, confusion, dizziness, or other concerning symptoms. When asked if she lost consciousness, the patient states "I think I did". She rates her pain 9/10. Review of Systems A complete 10 point review of systems was reviewed with the patient after she was able to be aroused enough to answer questions, with pertinent positives and negatives as per history of present illness. All else were negative. Past Medical/Surgical History Medical Problems: (1) ASTHMA, UNSPECIFIED (2) BIPOLAR DISORDER, UNSPECIFIED (3) Endometriosis (4) Hypothyroidism (5) Insomnia (6) MULTIPLE SCLEROSIS (7) POSTTRAUMATIC STRESS DISORDER (8) labor in third trimester Family History Diabetes mellitus FH: heart disease FHx: cancer Hypertension Kidney disease Psychiatric disorder Social History Smoking Status: Current Every Day Smoker Alcohol Use: occasionally Drug Use: marijuana Marital Status: in relationship Housing Status: lives with significant other Occupation Status: unemployed Current/Historical Medications Scheduled Gabapentin (Neurontin), 100 MG PO TID Gabapentin (Neurontin), 600 MG PO TID Levetiracetam (Keppra), 500 MG PO BID Methylprednisolone (Medrol Dosepak), 1 PKT PO DAILY Sertraline (Zoloft), 50 MG PO DAILY Scheduled PRN Acetaminophen (Tylenol), 1,000 MG PO Q6H PRN for Pain Physical Exam Vital Signs Date Time Temp Pulse Resp B/P (MAP) Pulse Ox O2 Delivery O2 Flow Rate FiO2 11/24/17 04:55 105 17 106/76 97 11/24/17 04:31 105 17 106/76 97 Room Air 11/24/17 04:11 99 11/24/17 04:00 95 15 106/58 98 11/24/17 03:00 83 22 89/51 95 11/24/17 02:39 92 20 107/50 98 Room Air 11/24/17 01:00 92 25 128/78 97 11/24/17 00:30 92 19 119/79 96 11/24/17 00:24 95 11/24/17 00:21 97 Room Air 11/23/17 22:58 36.9 106 16 114/70 97 Room Air Physical Exam VITALS: Vitals are noted on the nurse's note and reviewed by myself. Vital signs stable. GENERAL: This is a 32-year-old white female, in no acute distress, nondiaphoretic, well-developed well-nourished. SKIN: The skin was without rashes, erythema, edema, or bruising. There is no tenting of the skin. Capillary reflex less than 2 seconds. HEAD: Normocephalic atraumatic. EARS: External auditory canals clear, tympanic membranes pearly parkinson without erythema or effusion bilaterally. EYES: Pupils equal round and reactive to light and accommodation. Conjunctivae without injection, sclerae without icterus. Extraocular movements intact. NOSE: Patent, turbinates without inflammation or discharge. No sinus tenderness. MOUTH: Mucous membranes moist. Tonsils are not enlarged. Pharynx without erythema or exudate. Uvula midline. Airway patent. Tongue does not deviate. NECK: Supple without nuchal rigidity. No lymphadenopathy. No thyromegaly. Cervical spine is nontender. No JVD. HEART: Regular rate and rhythm without murmurs gallops or rubs. LUNGS: Clear to auscultation bilaterally without wheezes, rales or rhonchi. No dullness to percussion. No retractions or accessory muscle use. ABDOMEN: Positive bowel sounds x 4. Normal tympanic percussion. Soft, nontender, without masses or organomegaly. Lewis sign negative. No guarding or rebound tenderness. MUSCULOSKELETAL: No muscle atrophy, erythema, or edema noted. Full range of motion without joint tenderness in all extremities. The patient complains of tenderness over the spinous processes of the lumbar spine, and radiating out to the paraspinous muscles bilaterally. There is no thoracic spine tenderness. The patient does complain of cervical spine tenderness over the spinous processes. The patient is tender over the true clean of the right elbow. She does have full range of motion of the elbow joint. The patient is neurovascularly intact. Normal gait. Strength 5/5 throughout. NEURO: Patient was alert and oriented to person place and time upon awakening. Again, she was extremely difficult to arouse, and it took several hours until she was able to provide any sort of history or cooperate minimally with a physical examination. Normal sensation to light and sharp touch. Deep tendon reflexes 2+ throughout. No focal neurological deficits. Medical Decision & Procedures ER Provider Diagnostic Interpretation: CT HEAD: Stable and negative head CT. No acute intracranial abnormalities. No acute intracranial hemorrhage, transcortical infarctions, or mass. No acute fractures. Visualized paranasal sinuses and mastoids are clear. CT C-SPINE: Normal alignment of cranial cervical junction. No acute fractures or malalignment. No prevertebral soft tissue swelling or paraspinous hematoma. X-Ray Right Elbow: Possible soft-tissue abnormality on lateral view. No obvious fracture or dislocation. X-Ray L-Spine: No obvious fracture, subluxation, or osseous injury. Laboratory Results 11/24/17 00:06 Red Blood Count 4.92, Mean Corpuscular Volume 88.8, Mean Corpuscular Hemoglobin 29.5, Mean Corpuscular Hemoglobin Concent 33.2, Mean Platelet Volume 10.4, Neutrophils (%) (Auto) 45.1, Lymphocytes (%) (Auto) 40.8, Monocytes (%) (Auto) 3.9, Eosinophils (%) (Auto) 9.5, Basophils (%) (Auto) 0.5, Neutrophils # (Auto) 3.72, Lymphocytes # (Auto) 3.37, Monocytes # (Auto) 0.32, Eosinophils # (Auto) 0.78, Basophils # (Auto) 0.04 11/24/17 00:06 Test 11/23/17 00:30 11/24/17 00:06 Urine Color YELLOW Urine Appearance CLEAR (CLEAR) Urine pH 5.0 (4.5-7.5) Urine Specific [place] 1.020 (1.000-1.030) Urine Protein NEG (NEG) Urine Glucose (UA) NEG (NEG) Urine Ketones NEG (NEG) Urine Occult Blood NEG (NEG) Urine Nitrite NEG (NEG) Urine Bilirubin NEG (NEG) Urine Urobilinogen NEG (NEG) Urine Leukocyte Esterase NEG (NEG) Urine Test NEG (NEG) Urine Opiates Screen NEG (NEG) Urine Methadone, Qualitative NEG (NEG) Urine Barbiturates NEG (NEG) Urine Phencyclidine (PCP) Level NEG (NEG) Ur Amphetamine/Methamphetamine NEG (NEG) MDMA (Ecstasy) Screen NEG (NEG) Urine Benzodiazepines Screen NEG (NEG) Urine Cocaine Metabolite NEG (NEG) Urine Marijuana (THC) NEG (NEG) White Blood Count 8.25 K/uL (4.8-10.8) Red Blood Count 4.92 M/uL (4.2-5.4) Hemoglobin 14.5 g/dL (12.0-16.0) Hematocrit 43.7 % (37-47) Mean Corpuscular Volume 88.8 fL (80-100) Mean Corpuscular Hemoglobin 29.5 pg (25-34) Mean Corpuscular Hemoglobin Concent 33.2 g/dl (32-36) Platelet Count 368 K/uL (130-400) Mean Platelet Volume 10.4 fL (7.4-10.4) Neutrophils (%) (Auto) 45.1 % Lymphocytes (%) (Auto) 40.8 % Monocytes (%) (Auto) 3.9 % Eosinophils (%) (Auto) 9.5 % Basophils (%) (Auto) 0.5 % Neutrophils # (Auto) 3.72 K/uL (1.4-6.5) Lymphocytes # (Auto) 3.37 K/uL (1.2-3.4) Monocytes # (Auto) 0.32 K/uL (0.11-0.59) Eosinophils # (Auto) 0.78 K/uL (0-0.5) Basophils # (Auto) 0.04 K/uL (0-0.2) RDW Standard Deviation 48.3 fL (36.4-46.3) RDW Coefficient of Variation 14.8 % (11.5-14.5) Immature Granulocyte % (Auto) 0.2 % Immature Granulocyte # (Auto) 0.02 K/uL (0.00-0.02) Anion Gap 8.0 mmol/L (3-11) Est Creatinine Clear Calc Drug Dose 122.0 ml/min Estimated GFR () 138.5 Estimated GFR (Non- 119.5 BUN/Creatinine Ratio 20.3 (10-20) Calcium Level 9.1 mg/dl (8.5-10.1) Total Bilirubin 0.4 mg/dl (0.2-1) Aspartate Amino Transf (AST/SGOT) U/L (15-37) Alanine Aminotransferase (ALT/SGPT) 28 U/L (12-78) Alkaline Phosphatase 57 U/L (45-117) Total Protein 8.4 gm/dl (6.4-8.2) Albumin 3.9 gm/dl (3.4-5.0) Globulin 4.5 gm/dl (2.5-4.0) Albumin/Globulin Ratio 0.9 (0.9-2) Ethyl Alcohol mg/dL 73.0 mg/dl (0-3) ED Course Attempts made to evaluate the patient. She was unarousable to sternal rub, however, she had been awake for triage and nursing staff. IV access obtained and labs drawn. The patient did awake to give a urine sample. I attempted to re-evaluate the patient and she continues to be unarousable to verbal or physical stimuli. I was finally able to arouse the patient after approximately 3 hours to discuss her injuries. She states she is just very tired, as she has not slept much for 2 days. Imaging studies ordered. X-rays reviewed by myself and Dr. Austin. Due to possible abnormality noted on elbow x-ray, the patient was placed in a posterior orthoglass splint. She was given an arm sling. Discharge instructions reviewed, the patient was discharged home in good condition. Medical Decision This is a 32-year-old female patient presents to the emergency department today complaining of a fall with questionable loss of consciousness, low back pain, and right elbow pain. It took approximately 3 hours for the patient to be cooperative and to be able to arouse her enough to perform a thorough physical examination and obtaining history. During my interview, the patient continuously falls asleep, and stops mid- sentence while answering questions. Labs were significant only for alcohol level of 73.0. Urine tox screen was negative. Because the patient was having difficulty with being awake, and states she may have lost consciousness when she fell, CT scan of the head/neck was performed. This was insignificant for obvious abnormality. X-ray of the right elbow was questionable for abnormality, so the patient was placed in a posterior long-arm splint and encouraged to follow-up with orthopedics this week. The patient was discharged without questions, however, after getting to the waiting room and before leaving, she asked to speak with the nurse regarding pain medication. He advised her that she will not be getting pain medication, as she was positive for alcohol and too difficult to arouse while here in the ED. The patient apparently stated "okay" and left. I had reviewed previous medical records and noted some possible drug-seeking behavior with Golden Soto PA-C at the patient's last visit. The patient asked for no pain medication while here until after discharge, but complained of 9/10 pain while sleeping and unable to be woken up. I am concerned for drug-seeking behavior after this visit to the ED. I do recommend ongoing monitoring of the situation. [facility] Drug Monitoring Program Search Results: patient reviewed within database, see additional documentation Drug Monitoring Findings: The patient was found under the name Sandhya Wagoner. I did not note findings from Golden Soto PA-C, however had significant difficulty finding the patient in the system. I suspect she is using multiple different names. Medication Reconcilliation Current Medication List: was personally reviewed by me Blood Pressure Screening Patient's blood pressure: Normal blood pressure Impression Primary Impression: Fall Additional Impressions: Contusion of multiple sites Chronic low back pain Departure Information Dispostion Home / Self-Care Condition GOOD Referrals Malathi Ortiz DO (PCP) [facility] Patient Instructions ED Contusion Elbow, ED Low Back Pain Injury, ED Mechanical Fall, [facility] Additional Instructions You were seen in the ED today for a fall with back pain and right elbow pain. While here in the ED, Ct scans and xrays were insignificant for obvious injury, however we were unable to get a true lateral view of the elbow, so I do recommend follow-up with orthopedics due to your pain. DO NOT drive, drink alcohol, operate machinery, or perform dangerous activities today. Ibuprofen(Motrin, Advil) may be used for fever or pain. Use 600mg every six hours as needed. Take with food. Avoid using more than 2400mg in a 24 hour period. Do not use 2400mg per day for more than three consecutive days without physician direction. Prolonged inappropriate use can lead to stomach upset or ulcers. (AND/OR) Acetaminophen(Tylenol) may be used for fever or pain. Use 1000mg every six hours as needed. Avoid using more than 3000mg in a 24 hour period. Ice compresses for 20 minutes at a time four times daily for 2-3 days. Use the sling as instructed. Remove your arm from the sling 4-6 times a day and move all the joints around to keep them loose. Rest and elevate your injury. Do not get the splint wet. If your splint feels excessively tight, you have worsening pain, develop numbness or tingling, or your digits appear blue, loosen the jermaine wrap. Then reapply the jermaine wrap gently without removing the splint. If your symptoms are not quickly relieved return to the ER for re- evaluation. Return to the ER immediately for any numbness, tingling, severe pain, extreme swelling in the extremity or as needed. Call [facility], [phone], tomorrow morning to arrange follow up for your injury. Follow-up with your primary care physician in 2 to 3 days for a recheck of your current condition. Problem Qualifiers Primary Impression: Fall Encounter type: initial encounter Qualified Codes: W19.XXXA - Unspecified fall, initial encounter Additional Impressions: Chronic low back pain Back pain laterality: midline Sciatica presence: without sciatica Qualified Codes: M54.5 - Low back pain; G89.29 - Other chronic pain
[2017-11-24 04:55] VITALS: BP 106/76; PULSE 105; O2SAT 97
--- NOTE | 2017-11-24 06:45 | DIAGNOSTIC IMAGING REPORT ---
CERVICAL SPINE W/O CT DOSE: HISTORY: Trauma fall, neck pain TECHNIQUE: Multiaxial CT images of the cervical spine were performed and reformatted in the sagittal and coronal plane without the use of contrast. A dose lowering technique was utilized adhering to the principles of ALARA. COMPARISON: None. FINDINGS: No fractures. No subluxation. Prevertebral soft tissues and the C1-C2 interval are intact. No pneumothorax. IMPRESSION: No fractures within the cervical spine. The above report was generated using voice recognition software. It may contain grammatical, syntax or spelling errors. Electronically signed by: Pramod Lovett M.D. 11/24/2017 6:43 AM Dictated Date/Time: 11/24/2017 6:40 AM
--- NOTE | 2017-11-24 06:51 | DIAGNOSTIC IMAGING REPORT ---
R ELBOW MIN 3 VIEWS ROUTINE CLINICAL HISTORY: right elbow pain, fall trauma. Pain. COMPARISON: None. DISCUSSION: The bones and joint spaces appear intact. There is no evidence of fracture, dislocation or bony disease. There is no evidence for soft tissue swelling. IMPRESSION: Negative study. The above report was generated using voice recognition software. It may contain grammatical, syntax or spelling errors. Electronically signed by: Pramod Lovett M.D. 11/24/2017 6:49 AM Dictated Date/Time: 11/24/2017 6:48 AM
--- NOTE | 2017-11-24 07:06 | DIAGNOSTIC IMAGING REPORT ---
CT SCAN OF THE BRAIN WITHOUT IV CONTRAST CLINICAL HISTORY: Fall with head injury. COMPARISON STUDY: CT of the brain dated 04/13/2016. TECHNIQUE: Unenhanced axial CT scan of the brain is performed from the vertex to the skull base. A dose lowering technique was utilized adhering to the principles of ALARA. CT DOSE: 1000.96 mGy.cm FINDINGS: Brain parenchyma: The brain parenchyma is normal in appearance. There is no hemorrhage, mass effect, or evidence of acute territorial ischemia by CT criteria. [place]-white matter is preserved. No extra-axial fluid collection is seen. Ventricles, sulci, cisterns: Normal in configuration. Intracranial vasculature: The visualized intracranial vasculature at the skull base is normal in appearance. Calvarium: There is no depressed calvarial fracture. Sinuses and mastoids: Trace mucosal thickening is seen in the right maxillary antrum and ethmoid sinuses. The remaining visualized paranasal sinuses are clear. The mastoid air cells are well pneumatized. Orbits: The bony orbits are grossly intact. IMPRESSION: No acute intracranial abnormality. Electronically signed by: Home Conde M.D. 11/24/2017 7:04 AM Dictated Date/Time: 11/24/2017 7:03 AM
--- NOTE | 2017-11-24 07:11 | DIAGNOSTIC IMAGING REPORT ---
LUMBAR SPINE 5 VIEWS CLINICAL HISTORY: Fall. Low back pain. FINDINGS: 5 views of the lumbar spine are compared to study dated 11/16/2017. The skeletal structures are well mineralized. There is no radiographic evidence of fracture or malalignment. Vertebral body height and alignment are maintained. The transverse and spinous processes are intact. There is no evidence of spondylolysis. The intervertebral disc spaces are well-maintained. The visualized bony pelvis appears intact. There is a nonobstructed abdominal bowel gas pattern. IMPRESSION: There is no radiographic evidence of fracture or malalignment involving the lumbosacral spine. Electronically signed by: Home Conde M.D. 11/24/2017 7:10 AM Dictated Date/Time: 11/24/2017 7:08 AM
== END 2017-11-24 04:56 | disposition home or self-care (01) ==
LOC: EDBD 22:48 → C.EDB 22:56
DX: M25.521 Pain in right elbow (principal); M54.5 Low back pain; T14.8XXA Other injury of unspecified body region, initial encounter; X58.XXXA Exposure to other specified factors, initial encounter; G89.29 Other chronic pain; W11.XXXA Fall on and from ladder, initial encounter; J45.909 Unspecified asthma, uncomplicated; F31.9 Bipolar disorder, unspecified; E03.9 Hypothyroidism, unspecified; G35 Multiple sclerosis; F43.10 Post-traumatic stress disorder, unspecified; Z83.3 Family history of diabetes mellitus; Z80.9 Family history of malignant neoplasm, unspecified; Z82.49 Family history of ischemic heart disease and other diseases of the circulatory system; Z84.1 Family history of disorders of kidney and ureter; Z81.8 Family history of other mental and behavioral disorders; F17.210 Nicotine dependence, cigarettes, uncomplicated; F12.90 Cannabis use, unspecified, uncomplicated; Z79.899 Other long term (current) drug therapy